=== PATIENT | male | born 1970 ===

== ENCOUNTER 2018-12-03 15:20 | Outpatient (CLI) | payer OTHER ==
[~2018-12-03 15:20] MED LIST: BENICAR5 MG; GLIMEPIRIDE1 MG; HYDROCHLOROTHIA25 MG; METFORMIN HCL1000 M1
== END 2018-12-03 15:26 | disposition home or self-care (01) ==
LOC: LAB 15:20
DX: N20.0 Calculus of kidney (principal)

== ENCOUNTER → 2018-12-14 | Outpatient (CLI) | payer OTHER | END | disposition home or self-care (01) | LOC: TOM 07:15 | DX: M62.89 Other specified disorders of muscle (principal) ==

== ENCOUNTER 2019-01-05 09:52 | Outpatient (CLI) | payer OTHER | END 2019-01-05 10:00 | disposition home or self-care (01) | LOC: LAB 09:52 | DX: E11.9 Type 2 diabetes mellitus without complications (principal) ==

== ENCOUNTER → 2019-01-07 | Outpatient (CLI) | payer OTHER | END | disposition home or self-care (01) | LOC: TOM 12-16 07:30 | DX: R42 Dizziness and giddiness (principal); G45.9 Transient cerebral ischemic attack, unspecified ==